=== PATIENT | female | born 1970 | race Caucasian/White ===

== ENCOUNTER 2016-10-20 08:52 | Day surgery (SDC) | payer BC ==
[2016-10-17 18:15] LABS: BASOPHILS 0.5 %; BASOPHILS ABSOLUTE 0.04 10/3/uL (0.0-0.16); EOSINOPHILS 1.9 %; EOSINOPHILS ABSOLUTE 0.16 10/3/uL (0.0-0.53); HEMATOCRIT 41.3 % (36.0-48.0); HEMOGLOBIN 14.1 g/dL (12.0-16.0); IMMATURE GRANULOCYTES 0.1 %; IMMATURE GRANULOCYTES ABSOLUTE 0.01 10/3/uL (0.0-0.11); LYMPHOCYTES 37.5 %; LYMPHOCYTES ABSOLUTE 3.13 10/3/uL (0.67-4.30); MEAN CORPUS HGB CONC 34.1 g/dL (32.0-36.0); MEAN CORPUSCULAR VOLUME 93.9 fL (80-100); MONOCYTES 9.3 %; MONOCYTES ABSOLUTE 0.78 10/3/uL (0.21-1.20); NEUTROPHILS 50.7 %; NEUTROPHILS ABSOLUTE 4.23 10/3/uL (2.02-8.40); PLATELET COUNT 282 10/3/uL (150-400); RBC DISTRIBUTION WIDTH 13.2 % (12.0-16.0); WHITE BLOOD CELLS 8.4 10/3/uL (4.5-10.5)
[2016-10-17 18:16] LABS: MANUAL DIFF NO %
[2016-10-17 18:30] LABS: ALBUMIN 3.4 G/DL (3.5-5.0); ALKALINE PHOSPHATASE 72 U/L (45-117); BUN (BLOOD UREA NITROGEN) 15 MG/DL (6-23); CALCIUM, SERUM 8.9 MG/DL (8.5-10.4); CHLORIDE, SERUM 108 MMOL/L (96-112); CO2 (CARBON DIOXIDE) 27 MMOL/L (24-34); CREATININE 0.83 MG/DL (0.55-1.02); GFR AFRICAN AMERICAN 98 ML/MIN (>=60); GFR NON AFRICAN AMERICAN 85 ML/MIN (>=60); GLOBULIN 3.5 G/DL (2.5-4.1); GLUCOSE, SERUM 86 MG/DL (60-99); POTASSIUM, SERUM 3.8 MMOL/L (3.5-5.3); SGOT(AST) 16 U/L (5-40); SGPT(ALT) 34 U/L (5-65); SODIUM, SERUM 142 MMOL/L (135-148); TOTAL BILIRUBIN 0.4 MG/DL (0-1.2); TOTAL PROTEIN 6.9 G/DL (6.0-8.5)
--- NOTE | ~2016-10-20 | OP ---
Record Of Operation [facility] [address] [place]. [address] NAME: KELLEN CRAIG : 70 STATUS : PRE SDC PAT#: [id number] AGE: 46 ADM/REG DATE : MR#: [id number] REPORT SERV DATE: 10/20/16 DICTATED BY: ANANT THOMPSON JR. DATE: 10/20/16 REPORT STATUS : Draft TRANSCRIBED BY: MODL DATE: 10/20/16 DATE OF PROCEDURE: SURGEON: Anant Thompson M.D. DRILLING FIELD PROFESSIONAL: Barb Valentino. PROCEDURES: Laparoscopic cholecystectomy. PREOPERATIVE DIAGNOSIS: Cholelithiasis. POSTOPERATIVE DIAGNOSIS: Cholelithiasis. ANESTHESIA: General. INDICATIONS: The patient has presented with episodes of upper abdominal pain. Imaging does show cholelithiasis, and cholecystectomy is indicated. FINDINGS: On laparoscopic examination of the abdomen, there is some inflammation of the gallbladder, which appears to be chronic in nature. The gallbladder was removed successfully and did contain stones. No other significant findings were encountered. DESCRIPTION OF PROCEDURE: With adequate general anesthesia, the patient was placed in supine position. The abdomen was prepped and draped sterilely. Marcaine 0.5% was used for local infiltration of all trocar sites. An infraumbilical incision was made. The dissection was carried down sharply through the subcutaneous tissues. The fascia and peritoneum were opened. The peritoneum cavity was entered, and a balloon-tipped trocar was introduced. The abdomen was insufflated with CO2. The laparoscope was introduced, and the above-noted findings were encountered. Under direct vision, a 10 mm trocar was placed in the epigastric region and then two 5s in the subcostal. The gallbladder was identified, grasped, and retracted in a cephalad manner. Adhesions were taken off the gallbladder, securing bleeders with electrocautery. Then, the cystic duct was identified, and the cystic artery, these were each doubly clipped and divided. The gallbladder was removed from its bed with electrocautery. It was extracted through the umbilical site and submitted to Pathology. Bleeding within the bed was controlled with electrocautery. It was irrigated thoroughly with saline. Hemostasis was assured. Then, all trocars were removed under direct vision. The umbilical site was closed with vxhiod-in-bainh 0 PDS for the fascia layer subcutaneous 3 0 Monocryl and dermal Monocryl for all incisions. The patient left the operating room in satisfactory condition. The estimated blood loss was 10 mL. TERRANCE/SUDEEP Anant Thompson Jr., M.D. Record Of Operation [address] [address] NAME: KELLEN CRAIG : 70 STATUS : PRE SDC PAT#: [id number] AGE: 46 ADM/REG DATE : MR#: [id number] REPORT SERV DATE: 10/20/16 DICTATED BY: ANANT THOMPSON JR. DATE: 10/20/16 REPORT STATUS : Draft TRANSCRIBED BY: SUDEEP DATE: 10/20/16 / [id number] CC: Anant Thompson Jr., M.D.
== END 2016-10-20 23:59 | disposition home or self-care (01) ==
LOC: SDC 08:52
PROVIDERS: Specialist
PROC: 0FT44ZZ Resection of Gallbladder, Percutaneous Endoscopic Approach (ICD-10-PCS; principal; 2016-10-20 12:45)
DX: K80.10 Calculus of gallbladder with chronic cholecystitis without obstruction (principal); Z88.8 Allergy status to other drugs, medicaments and biological substances; Z90.89 Acquired absence of other organs
CPT/HCPCS: 71020; 80053; 82150; 83690; 84703; 85025; 88304; A9270-GY; J0690; J1170; J1885; J2250; J2405; J2710; J3010; Q9967